=== PATIENT | male | born 2000 | race Caucasian/White ===

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

== ENCOUNTER 2022-03-23 21:52 | Emergency (ER) | payer BC, MEDICAID ==
[~2022-03-23 21:52] MED LIST: HYOS0.1283 SL
--- NOTE | 2022-03-23 22:17 | ED Upper Extremity ---
General Chief Complaint: Upper Extremity Stated Complaint: L HAND PAIN Nursing Triage Note: Pt complaining of left hand pain. Pt states he smashed it with a rail hook at work around 0800 this morning Source: patient Exam Limitations: no limitations History of Present Illness Date Seen by Provider: Mar 23, 2022 Time Seen by Provider: 22:09 Initial Comments 21-year-old right-handed male patient states he had injury to left hand after a 10 pounds metal rack fell on his hand and smashed it at 8 AM today at work. Patient states he was seen at Dr. Gabriel was treated with antibiotic for infection but his pain is getting worse. Patient denies paresthesia but he states he cannot straighten his fingers. Patient took ibuprofen prior to arrival to ER. Allergies and Home Medications Allergies Coded Allergies: amoxicillin (Verified Adverse Reaction, Unknown, diarrhea , 06/12/20) clavulanic acid (Verified Adverse Reaction, Unknown, diarrhea , 06/12/20) Patient Home Medication List Home Medication List Reviewed: Yes Hyoscyamine Sulfate (Levsin-Sl) 0.125 Mg Tab.subl, 0.125 MG SL Q4H Prescribed by: VIC NORIEGA on 06/12/20 1150 Review of Systems Constitutional: no symptoms reported EENTM: no symptoms reported Respiratory: no symptoms reported Cardiovascular: no symptoms reported Gastrointestinal: no symptoms reported Genitourinary: no symptoms reported Musculoskeletal: see HPI Skin: see HPI Psychiatric/Neurological: No Symptoms Reported All Other Systems Reviewed Negative Unless Noted: Yes Past Syplxfo-Bbkivk-Dvcubu Hx Patient Social History Tobacco Use?: No Use of E-Cig and/or Vaping dev: No Substance use?: No Alcohol Use?: No Pt feels they are or have been: No Seasonal Allergies Seasonal Allergies: No Past Medical History Surgeries: Yes (oral surgery ) Respiratory: Yes Asthma Cardiac: No Neurological: No Genitourinary: No Gastrointestinal: No Musculoskeletal: No Endocrine: No HEENT: No Cancer: No Psychosocial: No Integumentary: No Blood Disorders: No Physical Exam Vital Signs Vital Signs - First Documented 03/23/22 21:57 Temp 36.8 Pulse 93 Resp 18 B/P (MAP) 146/78 (100) Pulse Ox 96 O2 Delivery Room Air Capillary Refill : Less Than 3 Seconds Height, Weight, BMI Height: '" Weight: lbs. oz. kg; BMI Method: General Appearance: WD/WN, mild distress HEENT: PERRL/EOMI, normal ENT inspection Neck: non-tender Cardiovascular: regular rate, rhythm, no edema, no gallop Respiratory: chest non-tender, lungs clear, normal breath sounds Shoulder: normal inspection Elbow/Forearm: normal inspection Wrist: Yes normal inspection Hand: Left, limited ROM, soft tissue tenderness, swelling Neurologic/Tendon: normal sensation, normal motor functions Progress/Results/Core Measures Results/Orders My Orders Orders - TAMMY FLOYD MD Hand 3 View Left (03/23/22 22:13) Vital Signs/I&O 03/23/22 21:57 Temp 36.8 Pulse 93 Resp 18 B/P (MAP) 146/78 (100) Pulse Ox 96 O2 Delivery Room Air Blood Pressure Mean: 100 Progress Progress Note : Progress Note Evaluation of patient in ER showed 21-year-old right-handed male with injury to [place] hand [place] [employer] with edema and soft tissue tenderness without deformity. X- ray did not show fracture or dislocation. Edd wrap was applied. Patient did not want pain medication in ER or work excuse. Patient advised to continue ibuprofen and apply ice on his hand. Diagnostic Imaging Plain Films/CT/US/NM/MRI: hand Comments X-ray of left hand interpreted by me and did not show fracture or dislocation. Departure Impression Primary Impression: Contusion of left hand including fingers Qualified Codes: S60.222A - Contusion of left hand, initial encounter; S60.00XA - Contusion of unspecified finger without damage to nail, initial encounter Disposition: HOME, SELF-CARE Condition: Stable Departure-Patient Inst. Decision time for Depature: 22:43 Referrals: [facility] [place]) Primary Care Physician Patient Instructions: Contusion (DC) Add. Discharge Instructions: Apply ice on left hand Continue taking ibuprofen 600 to 800 mg every 8 hours as needed for pain Follow-up with your primary care physician or work comp physician All discharge instructions reviewed with patient and/or family. Voiced understanding. TAMMY FLOYD MD Mar 23, 2022 22:17
--- NOTE | 2022-03-23 22:46 | Diagnostic Imaging Report ---
INDICATION: Pain FINDINGS: 3 view left hand showed no fracture, dislocation or acute appearing articular irregularity. IMPRESSION: No acute appearing abnormality Dictated by: Dictated on workstation # [id number]
[2022-03-23 22:49] VITALS: BP 146/78
== END 2022-03-23 22:55 | disposition home or self-care (01) ==
LOC: EDUNIT# 21:52 → ER FS 21:53
DX: S60.222A Contusion of left hand, initial encounter (principal); S60.00XA Contusion of unspecified finger without damage to nail, initial encounter; Z28.310 Unvaccinated for COVID-19; W23.0XXA Caught, crushed, jammed, or pinched between moving objects, initial encounter; Y92.59 Other trade areas as the place of occurrence of the external cause; Y99.0 Civilian activity done for income or pay
CPT/HCPCS: 73130